=== PATIENT | male | born 1990 | race Caucasian/White ===

== ENCOUNTER 2023-04-27 23:03 | Emergency (ER) | payer OTHER ==
[2023-04-27] MEDS ORDERED: Ondansetron 4 MG Tab.DIS PO ONE (23:33)
[2023-04-27] MEDS ORDERED: Acetaminophen/HYDROcodone 325-5 MG Tab PO ONE (23:33)
[2023-04-27] MEDS ORDERED: Lidocaine 4% 1 each Patch TOP STA (23:33)
== END 2023-04-27 23:55 | disposition home or self-care (01) ==
LOC: MW.ED 23:03
DX: S42.022A Displaced fracture of shaft of left clavicle, initial encounter for closed fracture (principal); W17.89XA Other fall from one level to another, initial encounter
CPT/HCPCS: 73030; 99283; A9270